=== PATIENT | male | born 1955 | race African-American/Black ===

== ENCOUNTER 2016-12-23 21:59 | Inpatient (IN) | payer MEDICARE, OTHER ==
[~2016-12-23] VITALS: Ht 172.7 cm; Wt 63.0 kg
--- NOTE | 2016-12-23 22:04 | NUR ---
pt bibra from home. per report, friend called concerned about pt acting bizzare. pt upon assessment is aaox4. denies pain at this time but states been having abdominal and lower back pain earlier. gowned and placed on monitor. stable vitals. awaitng md beltrán.
--- NOTE | 2016-12-23 22:40 | NUR ---
dr mata at bedside for eval.
--- NOTE | 2016-12-23 22:49 | NUR ---
biology laboratory assistant at bedside for blood draw.
[2016-12-23 22:56] LABS: BASOPHILS % (AUTO) 0.5 % (0.0-2.0); EOSINOPHILS # (AUTO) 0.2 /CMM (0.0-0.7); EOSINOPHILS % (AUTO) 3.2 % (0.0-6.0); HEMATOCRIT 42 % (39-51); HEMOGLOBIN 13.4 g/dL (13.5-17.5); LYMPHOCYTES # (AUTO) 1.8 /CMM (0.8-4.8); LYMPHOCYTES % (AUTO) 23.2 % (20.0-44.0); MEAN CORPUSCULAR HEMOGLOBIN 26 PG (26.0-33.0); MEAN CORPUSCULAR HGB CONC 32 g/dl (31.0-36.0); MEAN CORPUSCULAR VOLUME 82 fL (80-96); MONOCYTES # (AUTO) 0.6 /CMM (0.1-1.30); MONOCYTES % (AUTO) 7.3 % (2.0-12.0); NEUTROPHILS # (AUTO) 5.1 /CMM (1.8-8.9); NEUTROPHILS % (AUTO) 65.8 % (43.0-81.0); PLATELET COUNT (AUTO) 153 /CMM (150-450); RDW COEFFICIENT OF VARIATION 15.4 (11.5-15.0); RED BLOOD CELL COUNT(AUTO) 5.13 MIL/uL (4.5-6.0); WHITE BLOOD COUNT (AUTO) 7.7 K/uL (4.3-11.0)
[2016-12-23 23:06] LABS: CARBON DIOXIDE 25 mmol/L (21-32); CHLORIDE 103 mmol/L (98-107); CREATININE 0.9 mg/dL (0.6-1.3); GFR 104 mL/min (>60); GLUCOSE 100 mg/dL (74-106); POTASSIUM 3.5 mmol/L (3.5-5.1); SODIUM SERUM 136 mmol/L (136-145); UREA NITROGEN, BLOOD 9 mg/dL (7-18)
[2016-12-23 23:10] LABS: INR 1.15 (0.87-1.13); PROTHROMBIN TIME 12.1 SECS (9.5-12.7)
[2016-12-23 23:11] LABS: ALANINE AMINOTRANSFERASE 29 U/L (12-78); ALBUMIN 3.5 g/dL (3.4-5.0); ALCOHOL, BLOOD < 3 mg/dL (0-0); ALKALINE PHOSPHATASE 81 U/L (46-116); ASPARTATE AMINOTRANSFERASE 27 U/L (15-37); BILIRUBIN,DIRECT 0.2 mg/dL (0.0-0.2); BILIRUBIN,TOTAL 0.5 mg/dL (0.2-1.0); TOTAL PROTEIN, SERUM 8.6 g/dL (6.4-8.2)
[2016-12-23 23:14] LABS: TROPONIN I 0.161 ng/mL (0.00-0.056)
[2016-12-23] MEDS ORDERED: ASPIRIN 325 MG TABLET PO ONE (23:30)
[2016-12-23] MEDS ORDERED: ENOXAPARIN SODIUM 60 MG/0.6 ML DISP.SYRIN SQ ONE ×2 (23:30→23:36)
[2016-12-23] MEDS ORDERED: ASPIRIN 325 MG TABLET ONE (23:36)
--- NOTE | 2016-12-23 23:38 | NUR ---
PANEL CALL FOR PT ADMIT. NOTIFIED.
--- NOTE | 2016-12-23 23:51 | NUR ---
FRIEND MURIEL VICK CONTACT # [phone]
[2016-12-23 23:56] LABS: APPEARANCE,URINE CLEAR (CLEAR); BILIRUBIN,URINE NEGATIVE (NEGATIVE); BLOOD, URINE NEGATIVE Ery/uL (NEGATIVE); COLOR,URINE YELLOW (YELLOW); KETONES,URINE NEGATIVE (NEGATIVE); LEUKOCYTE ESTERASE ,URINE NEGATIVE (NEGATIVE); NITRITE, URINE NEGATIVE (NEGATIVE); PROTEIN,URINE NEGATIVE (NEGATIVE); UGLUCOSE NEGATIVE (NEGATIVE); UROBILINOGEN,URINE 0.2 EU/dL (0.2)
[2016-12-24] VITALS: BP 127/72
[2016-12-24] MEDS ORDERED: ACETAMINOPHEN 325 MG TABLET PO PRN
[2016-12-24] MEDS ORDERED: ZOLPIDEM TARTRATE 5 MG TABLET PO PRN
[2016-12-24] MEDS ORDERED: Z GUARD REMEDY 2 OZ OINT TP PRN
[2016-12-24] MEDS ORDERED: MAGNESIUM HYDROXIDE 30 ML UDC PO PRN
[2016-12-24] MEDS ORDERED: MAG HYDROX/AL HYDROX/SIMETH 30 ML UDC PO PRN
[2016-12-24] MEDS ORDERED: ONDANSETRON HCL/PF 4 MG/2 ML VIAL IVP PRN
--- NOTE | 2016-12-24 00:05 | NUR ---
PT TO RADIOLOGY FOR HEAD CT SCAN VIA [facility].
[2016-12-24 00:18] LABS: CANNABINOID, URINE NEGATIVE (NEGATIVE); PHENCYCLIDINE SCREEN,URINE NEGATIVE (NEGATIVE)
--- NOTE | 2016-12-24 00:22 | NUR ---
REPORT GIVEN TO MAYRA. PT AWAITING TRANSFER TO FLOOR.
--- NOTE | 2016-12-24 00:22 | NUR ---
RN NOTE RECEIVED REPORT FROM MANAGER [employer]ENTS AMARILIS FOR CONTINUITY OF CARE. AWAITING PT ARRIVAL.
--- NOTE | 2016-12-24 00:30 | NUR ---
RN INITIAL NOTE RECEIVED PT IN NO ACUTE DISTRESS IN BED. PT IS A/O X 3 AND ABLE TO MAKE NEEDS KNOWN. PT IS ON RA AND TOLERATING WELL WITH O2 SAT @ 98%. PT DENIES ANY SOB, DIFFICULTY BREATHING. PT STATES PAIN IN NECK AND SHOULDERS. PT DENIES ANY PAIN MEDS. PT HAS LAC 20G THAT IS CLEAN DRY INTACT AND PATENT WITH SALINE FLUSH. IV IS SALINE LOCKED. BED IN LOW LOCK POSITION WITH RAILS UP X 2. CALL LIGHT WITHIN REACH AND ALL SAFETY MEASURES ENSURED AND CARRIED OUT. WILL CONTINUE TO MONITOR FOR ANY CHANGES IN CONDITION.
--- NOTE | 2016-12-24 00:38 | NUR ---
PT TRANSFERED PER [facility].
[2016-12-24 03:48] LABS: THYROID STIMULATING HORMONE 3.562 uIU/mL (0.358-3.74)
[2016-12-24 04:00] VITALS: BP 123/55
[2016-12-24] MEDS: DEXAMETHASONE SOD PHOSPHATE 10 MG/ML VIAL IV SCH ×2 (04:54→19:28)
--- NOTE | 2016-12-24 07:00 | NUR ---
RN NOTES RECEIVED PT ON BED , A/Ox4, RESPIRATION EVEN AND UNLABORED, ON RA , NO DISTRESS NOTED, ON TELE SB IN 50'S , L AC IV SITE CDI, SR UP x3, BED LOCKED AND IN LOW POSITIONS , CONTINUE TO MONITOR PT CLOSELY AND NOTIFY MD FOR ANY SIGNIFICANT CHANGES. Addendum: 12/24/16 at 1513 by LIA SMALLS RN PT IS A/Ox2 .
[2016-12-24 07:33] LABS: BASOPHILS % (AUTO) 0.5 % (0.0-2.0); EOSINOPHILS # (AUTO) 0.4 /CMM (0.0-0.7); EOSINOPHILS % (AUTO) 4.9 % (0.0-6.0); HEMATOCRIT 43 % (39-51); LYMPHOCYTES # (AUTO) 2.4 /CMM (0.8-4.8); LYMPHOCYTES % (AUTO) 30.6 % (20.0-44.0); MEAN CORPUSCULAR HEMOGLOBIN 27 PG (26.0-33.0); MEAN CORPUSCULAR HGB CONC 32 g/dl (31.0-36.0); MEAN CORPUSCULAR VOLUME 82 fL (80-96); MONOCYTES # (AUTO) 0.8 /CMM (0.1-1.30); MONOCYTES % (AUTO) 10.4 % (2.0-12.0); NEUTROPHILS # (AUTO) 4.3 /CMM (1.8-8.9); NEUTROPHILS % (AUTO) 53.6 % (43.0-81.0); PLATELET COUNT (AUTO) 158 /CMM (150-450); RDW COEFFICIENT OF VARIATION 16.5 (11.5-15.0); RED BLOOD CELL COUNT(AUTO) 5.25 MIL/uL (4.5-6.0)
[2016-12-24 08:00] VITALS: BP 120/67
[2016-12-24 08:05] LABS: CALCIUM, SERUM 8.7 mg/dL (8.5-10.1); CREATININE 0.8 mg/dL (0.6-1.3); MAGNESIUM 1.5 mg/dL (1.8-2.4); PHOSPHORUS 3.8 mg/dL (2.5-4.9); POTASSIUM 3.6 mmol/L (3.5-5.1)
[2016-12-24] MEDS: PANTOPRAZOLE 40 MG TABLET.DR PO SCH (08:51)
[2016-12-24 12:00] VITALS: BP_SYST 120; BP_SYST 131; BP_DIAS 67; BP_DIAS 81
[2016-12-24] MEDS ORDERED: IV SET PRIMARY PUMP SET 1 EA INFUS.SET MC ONE (12:40)
[2016-12-24] MEDS: Magnesium 1GM/D5W 100ML PREMIX 100 ML IV SCH ×2 (12:44→13:33)
--- NOTE | 2016-12-24 14:00 | NUR ---
RN NOTES PT IS CONFUSED , REFUSING TO EAT , ORIENTED TO ROOM AND SURROUNDING , SR UP x3, BED ALARM ON CONTINUE TO MONITOR .
[2016-12-24 16:00] VITALS: BP 142/89
[2016-12-24] MEDS: ASPIRIN 81 MG TAB.CHEW PO SCH (16:37)
[2016-12-24] MEDS: LORAZEPAM INJ 2 MG/ML VIAL IV PRN (17:25)
--- NOTE | 2016-12-24 18:29 | NUR ---
RN NOTES PT STABLE , STILL CONFUSED, RESPIRATION EVEN AND UNLABORED , MEDICATED PER MD ORDER , NO SIGNIFICANT CHANGES NOTED ON THIS SHIFT .
--- NOTE | 2016-12-24 19:04 | NUR ---
TEXTED DR. BLACK FOR MRI APPROVAL.
--- NOTE | 2016-12-24 19:45 | NUR ---
TELE NOTES. RECEIVED PT ATTEMPTING TO GET OOB,SIDE RAILS UP X3,BED ON LOW POSITION,CALL LIGHT W/IN REACH AND BED ALARM ON,PT ORIENTED TO NAME ONLY,RE-ORIENTED TO TIME PLACE AND SURROUNDINGS .PT SCHEDULED FOR MRI OF BRAIN W/AND W/ AND W/OUT CONTRAST BUT PT CAN NOT SIGN CONSENT AND NO FAMILY TO CONSENT.INFORMED CN RN,AND STATES " WILL DO IT TOMORROW".
[2016-12-24 20:00] VITALS: BP 112/75
[2016-12-24 21:19] LABS: FOLIC ACID 18.7 NG/ML (8.6-58.9)
[2016-12-24] MEDS ORDERED: ATORVASTATIN 40 MG TABLET PO SCH (22:00)
[2016-12-25] VITALS: BP 127/84
[2016-12-25 01:00] VITALS: BP 127/84
[2016-12-25 04:00] VITALS: BP 124/79
[2016-12-25] MEDS: DEXAMETHASONE SOD PHOSPHATE 10 MG/ML VIAL IV SCH ×4 (04:55→21:10)
--- NOTE | 2016-12-25 05:58 | NUR ---
END NOTES. PT SLEPT MOST OF THE NIGHT.WAS ABLE TO ANSWER PART OF MRI QUESTIONNAIRE,OTHERWISE UNCOOPERATIVE AND CONFUSED.NEEDS A LOT OF REASSURANCE AND EXPLANATION OF CONDITION.
--- NOTE | 2016-12-25 07:20 | NUR ---
RN INITIAL NOTES: REC'D PT ASLEEP ON BED, NOT IN ANY DISTRESS, A&OX2-3. ON TELEMONITOR, SR W/ HR 79. PT HAS L AC G20, SL, FLUSHED, PATENT, C/D/I, NO SIGNS OF INFECTION/ INFILTRATION NOTED. ASKED IF HE CAN SIGN CONSENT FOR HIS MRI PROCEDURE BUT HE REFUSES IT. RISK & BENEFITS EXPLAINED. VERBALIZED UNDERSTANDING. PROVIDED COMFORT & SAFETY MEASURES. CL PLACED W/IN REACHED. BED KEPT LOW IN LOCKED POSITION. NEEDS ATTENDED. WILL CONTINUE TO MONITOR.
[2016-12-25] MEDS: PANTOPRAZOLE 40 MG TABLET.DR PO SCH (07:30)
[2016-12-25 08:00] VITALS: BP 130/70
--- NOTE | 2016-12-25 08:00 | NUR ---
RN NOTES PER NIGHT NURSE SHE HAD ADMINISTERED DECADRON INJ 0500, FORGOT TO SCAN IT.
[2016-12-25 08:07] LABS: CALCIUM, SERUM 8.7 mg/dL (8.5-10.1); CREATININE 0.8 mg/dL (0.6-1.3); MAGNESIUM 1.8 mg/dL (1.8-2.4); POTASSIUM 3.9 mmol/L (3.5-5.1)
[2016-12-25] MEDS: ASPIRIN 81 MG TAB.CHEW PO SCH (09:00)
--- NOTE | 2016-12-25 09:00 | NUR ---
RN NOTES: PT REFUSES TAKING HIS ORAL MEDICATIONS, EXPLAINED TO HIM THE RISK & BENEFITS BUT STILL REFUSES IT. MADE AWARE.
--- NOTE | 2016-12-25 10:00 | NUR ---
RN NOTES: CT CHEST ABD & CT ABD PELVIS ORDERED BUT PT REFUSES IT. EXPLAINED RISK & BENEFITS BUT STILL HE REFUSES IT. MADE AWARE.
--- NOTE | 2016-12-25 12:00 | NUR ---
RN NOTES: PT REFUSED 12PM VS MONITORING, RISK & BENEFITS EXPLAINED. PT VERBALIZED UNDERSTANDING.
--- NOTE | 2016-12-25 12:00 | NUR ---
RN NOTES: PT SEEN & EXAMINED BY DR. DEAN W/ NO NEW ORDERS.
--- NOTE | 2016-12-25 12:14 | NUR ---
RN NOTES PT REMOVED IV, WILL NOT LET US REINSERT A NEW ONE. EXPLAINED TO HIM THE PROS OF HAVING AN IV IN AN HOSPITAL BUT PT KEEPS REFUSING, STATING THAT HE WANTS TO LEAVE.
[2016-12-25] MEDS ORDERED: LORAZEPAM 1 MG TABLET PO ONE (12:30)
[2016-12-25] MEDS ORDERED: QUETIAPINE FUMARATE 25 MG TABLET PO SCH (12:30)
[2016-12-25] MEDS ORDERED: OLANZAPINE 10 MG VIAL IM ONE (12:30)
--- NOTE | 2016-12-25 12:38 | NUR ---
SPOKE WITH RN. PATIENT REFUSING CT SCAN
[2016-12-25 16:00] VITALS: BP 115/70
--- NOTE | 2016-12-25 16:00 | NUR ---
RN NOTES: SEEN & EXAMINED BY DR. MARIA W/ NEW ORDERS & CARRIED OUT. PT WAS ABLE TO SIGN CONSENT FOR MRI BRAIN & CT CHEST ABD PELVIS W/ CONTRAST, W/ BROTHER AT BEDSIDE.
[2016-12-25] MEDS: HYDROCODONE/APAP 5/325MG 1 EACH TABLET PO PRN (17:11)
--- NOTE | 2016-12-25 18:41 | NUR ---
RN CLOSING NOTES: NO ACUTE CHANGES NOTED W/IN SHIFT, A&O X3, NOT IN ANY DISTRESS, DENIES CHEST PAIN. HAS R AC G20, PATENT, C/D/I, NO SIGNS OF INFECTION/ INFILTRATION. SAFETY MAINTAINED. CL PLACED W/IN REACHED. INSTRUCTED NPO POST MIDNIGHT FOR CT SCAN PROCEDURE GINA AM. VERBALIZED UNDERSTANDING. NEEDS ATTENDED. WILL ENDORSE TO PM RN FOR AVELINA.
[2016-12-25] MEDS: LORAZEPAM INJ 2 MG/ML VIAL IV PRN (19:05)
--- NOTE | 2016-12-25 19:30 | NUR ---
RN INITIAL NOTES RECEIVED PT AWAKE ON BED, A/O X 2, SOME PERIODS OF DISORIENTATION. ON ROOM AIR SATURATING WELL. CONTINENT, ABLE TO USE THE URINAL NEEDED. RIGHT AC 20G IS FLUSHED AND PATENT, NO S/S OF INFILTRATION/INFECTION, DRESSING CDI. BED LOW AND LOCKED, SIDERAILS UP, CALL LIGHT WITHIN REACH, BED ALARM ON. WILL ACCOMPANY PT TO MRI IN A FEW MIN.
[2016-12-25 20:00] VITALS: BP 113/62
[2016-12-25] MEDS ORDERED: GADOVERSETAMIDE 2.5 MMOL/5 ML VIAL ONE (20:21)
[2016-12-25] MEDS ORDERED: GADOVERSETAMIDE 5 MMOL/10 ML VIAL ONE (20:21)
[2016-12-25] MEDS ORDERED: OLANZAPINE 5 MG/TAB.RAPDIS PO SCH (22:00)
[2016-12-26 04:00] VITALS: BP 119/68
[2016-12-26] MEDS: DEXAMETHASONE SOD PHOSPHATE 10 MG/ML VIAL IV SCH ×2 (04:06→12:15)
--- NOTE | 2016-12-26 06:30 | NUR ---
RN CLOSING NOTES PT REMAINS STABLE OF THE MOMENT. ALL DUE MEDS GIVEN, AM CARE PROVIDED. WILL ENDORSE CONTINUITY OF CARE TO AM RN
--- NOTE | 2016-12-26 07:00 | NUR ---
RN NOTES RECEIVED PT ON BED , A/Ox2 , WITH PERIODS OF CONFUSION AWAKE ON BED, A/O X 2, RESPIRATION EVEN AND UNLABORED, ON RA NO SOB NOTED, ABLE TO USE THE URINAL NEEDED. RIGHT AC 20G SITE CDI, CALL LIGHT WITHIN EASY REACH , BED LOCKED AND IN LOW POSITION , SR UP X3 BED ALARM ON. NPO AT THIS TIME FOR CT SCAN WILL CONTINUE TO MONITOR PT CLOSELY AND NOTIFY MD FOR ANY SIGNIFICANT CHANGES .
[2016-12-26] MEDS: PANTOPRAZOLE 40 MG TABLET.DR PO SCH (07:31)
[2016-12-26] MEDS: HYDROCODONE/APAP 5/325MG 1 EACH TABLET PO PRN ×2 (07:31→13:09)
[2016-12-26 07:49] LABS: CALCIUM, SERUM 9.2 mg/dL (8.5-10.1); CREATININE 0.9 mg/dL (0.6-1.3)
[2016-12-26 08:00] VITALS: BP 129/72
[2016-12-26] MEDS ORDERED: IV NS 0.9% 250 ML IV ONE (09:01)
[2016-12-26] MEDS ORDERED: CT SWABBABLE VALVE TRANS SET 1 EA INFUS.SET MC ONE (09:02)
[2016-12-26] MEDS ORDERED: IOHEXOL-300 100 ML VIAL IV ONE (09:02)
--- NOTE | 2016-12-26 10:12 | NUR ---
RN NOTES PT WANTS TO LEAVE AMA , PT IS CONFUSED ,PT REORIENTED TO ROOM AND SURROUNDING, PT INFORMED AND EDUCATED REGARDING THE IMPORTANCE AND COMPLIANCE WITH THE PLAN OF CARE . STILL WANTS TO LEAVE AMA , PT'S BROTHER NOTIFIED . BROTHER STATED WILL BE HERE TO TAKE HIM HOME AFTER 12 NOON. PT INFORMED .
[2016-12-26] MEDS: LORAZEPAM INJ 2 MG/ML VIAL IV PRN (10:24)
--- NOTE | 2016-12-26 10:53 | NUR ---
RN NOTES PT ENDORSED TO MIRI TENORIO FOR CONTINUITY OF CARE
--- NOTE | 2016-12-26 13:00 | NUR ---
MS RN NOTE 1100: Received patient sitting on chair confused. With episodes of trying to get out of the unit, rendered reality orientation. Made aware brother will come about 1200 per previous nurse. With PIV intact. 1245: Brother came and saw patient and verbalized patient is on his baseline. Verbalized he wanted to bring patient home as also requested by patient. Family aware for the multiple brain masses and CT chest done and also aware that he has RUL lung mass. Brother asked to talk to MD for patient to be discharged home. CN spoke with dr. Deleon and unable to clear patient at this time, needed continue hospitalization. Made patient's brother aware said he will bring home the patient AMA. Patient and family made aware for the risks of going home AMA, verbalized understanding and CN made brother sign AMA papers. Per brother, he is happy that patient is back to his baseline and wanted him to go home to let his brother do things that he like and aware for the medical condition that he has. dr. Deleon aware for the AMA.
--- NOTE | 2016-12-26 13:37 | NUR ---
Wet Silk Hanger received a call from MAKSIM [place] stating pt. wants to leave AMA and pt's brother is bedside to take pt. home. SW met with pt. and his brother Trever Morfin bedside. Pt. appears confused. Pt's brother Trever informed SW stating, " there is nothing here for him to be at." SW inquired about Trever's and pt's address. Trever and pt. reside at the same apartment building located at [address] [place] [address], [address] in [facility]. Pt. resides at [address]. Pt's brother stated he will take care of pt. Trever's phone number is . SW to file APS report for self-neglect since pt. is going AMA and resides alone per brother Trever.
[2016-12-27 14:26] LABS: HEPATITIS B SURFACE AB Non Reactive (.); HEPATITIS C VIRUS AB >11.0 s/co ratio (0.0-0.9)
[2016-12-28 20:40] LABS: *HIV-1 RNA BY PCR <20 copies/mL (.)
== END 2016-12-26 12:00 | disposition left against medical advice (07) | DRG 54 ==
LOC: ER 22:01 → TELE1 12-24 00:10 → MEDSG1 12-25 13:15
PROVIDERS: ADMIT Family Medicine; ATTEND Internal Medicine
DX: C79.31 Secondary malignant neoplasm of brain (principal); I21.4 Non-ST elevation (NSTEMI) myocardial infarction; G93.40 Encephalopathy, unspecified; G93.6 Cerebral edema; C34.90 Malignant neoplasm of unspecified part of unspecified bronchus or lung; E83.42 Hypomagnesemia; I10 Essential (primary) hypertension; F29 Unspecified psychosis not due to a substance or known physiological condition
CPT/HCPCS: 36415; 70450-TC; 70553-TC; 71010-TC; 71270-TC; 72194-TC; 74170-TC; 80048-TC; 80061-TC; 80076-TC; 80305; 81000-TC; 82746; 83615-TC; 83735-TC; 84100-TC; 84443-TC; 84484-TC; 85025-TC; 85730-TC; 86706; 86803; 87081-TC; 87086-TC; 87340; 87536; 93307-TC; A4606; A9579; G0480; J1100; J1650; J2060; J3475; J3490; J7050; Q9967; Z7610

== ENCOUNTER 2017-02-21 10:35 | Emergency (ER) | payer MEDICARE ==
[~2017-02-21] VITALS: Ht 172.7 cm; Wt 59.0 kg
--- NOTE | 2017-02-21 10:35 | NUR ---
RL FROM HOME DUE TO RIGHT SIDED RIBCAGE PAIN SINCE HE TRIPPED AND FELL YESTERDAY. NO KO. PT IS AAO4. APPEARS IN NO APPARENT DISTRESS, RR EVEN AND UNLABORED. VSS. WILL CONT TO AD[facility]
[2017-02-21] MEDS ORDERED: ONDANSETRON 4 MG TAB.RAPDIS ONE (11:00)
[2017-02-21] MEDS ORDERED: ONDANSETRON 4 MG TAB.RAPDIS SL ONE (11:00)
[2017-02-21] MEDS ORDERED: HYDROCODONE/APAP 5/325MG 1 EACH TABLET PO ONE (11:00)
[2017-02-21] MEDS ORDERED: HYDROCODONE/APAP 5/325MG 1 EACH TABLET ONE (11:00)
--- NOTE | 2017-02-21 11:33 | NUR ---
[phone] LU[facility]- HOSPICE NURSE
--- NOTE | 2017-02-21 12:59 | NUR ---
Anderson pink in [facility] - 02/21/17 at 1311 by TG Patient discharged to home in stable condition. Written and verbal after care instructions given. Patient verbalizes understanding of instruction.
--- NOTE | 2017-02-21 13:14 | NUR ---
CALLED [facility] FOR TRANSPORT BACK HOME, ETA 1 HOUR
[2017-02-21 14:34] VITALS: BP 110/60
--- NOTE | 2017-02-21 14:34 | NUR ---
PATIENT WAS PICKED UP BY [facility] TO BE TRANSPORTED TO HIS APT.
== END 2017-02-21 14:35 | disposition home or self-care (01) ==
LOC: ER 10:38
DX: S20.211A Contusion of right front wall of thorax, initial encounter (principal); W10.9XXA Fall (on) (from) unspecified stairs and steps, initial encounter; W01.0XXA Fall on same level from slipping, tripping and stumbling without subsequent striking against object, initial encounter; Y93.89 Activity, other specified; Y92.89 Other specified places as the place of occurrence of the external cause; Y99.8 Other external cause status; I10 Essential (primary) hypertension; G89.29 Other chronic pain
CPT/HCPCS: 71100-TC; A4606; Q0162; Z7610